=== PATIENT | female | born 1995 | race Hispanic/Latino ===

== ENCOUNTER 2020-09-10 11:48 | Emergency (ER) | payer OTHER ==
[2020-09-10] MEDS ORDERED: predniSONE 20 MG TAB ONE (12:26)
== END 2020-09-10 13:31 ==
LOC: ERS 11:48
DX: R06.02 Shortness of breath (principal); R07.89 Other chest pain; R22.0 Localized swelling, mass and lump, head; T44.5X5A Adverse effect of predominantly beta-adrenoreceptor agonists, initial encounter
CPT/HCPCS: 99284; J7512